=== PATIENT | male | born 1975 | race Caucasian/White ===

== ENCOUNTER 2017-01-20 12:14 | Emergency (ER) | payer BC ==
[2017-01-20 12:19] VITALS: BP 132/79; PULSE 70; TEMP 98.6; BMI 29.1
[2017-01-20] MEDS ORDERED: FLUORESCEIN NA 1 EA STRIP ONE (12:22)
[2017-01-20] MEDS ORDERED: TETRACAINE 0.5% OPHTH SOLN 2 ML BOTTLE ONE (12:22)
--- NOTE | 2017-01-20 12:31 | PDOC ---
History of Present Illness - General Chief Complaint: Eye Problem Stated Complaint: RT EYE IRRITATION, REDNESS Time Seen by Provider: 01/20/17 12:21 History Source: Patient Exam Limitations: No Limitations - History of Present Illness Initial Comments: 01/20/17 12:29 41 y/o male with right eye irritation after working in the garden. Right eye is red and teary. No discharge. Not sure if something went into eey. no blurred vision or light sensitivity. No headache. Timing/Duration: 1 hour Severity: mild Past History - Past Medical History Allergies/Adverse Reactions: Allergies Allergy/AdvReac Type Severity Reaction Status Date / Time No Known Allergies Allergy Verified 01/20/17 12:15 Home Medications: Ambulatory Orders Tobramycin/Dexamethasone [Tobradex Eye Drops] 1 drop OP QID #5 drops.susp - Psycho/Social/Smoking Cessation Hx Anxiety: No Suicidal Ideation: No Smoking Status: No Smoking History: Never smoked Number of Cigarettes Smoked Daily: 0 Hx Alcohol Use: (occasional) Review of Systems - Review of Systems Able to Perform ROS?: Yes Is the patient limited Chinese proficient: No Constitutional: No: Chills, Fever HEENTM: Yes: Tearing, Other (eye redness). No: Eye Pain, Blurred Vision Respiratory: No: Cough, Shortness of Breath Cardiac (ROS): No: Chest Pain Musculoskeletal: No: Joint Pain All Other Systems: Reviewed and Negative *Physical Exam - Vital Signs Last Vital Signs Temp Pulse Resp BP Pulse Ox 98.6 F 70 18 132/79 98 01/20/17 12:15 01/20/17 12:15 01/20/17 12:15 01/20/17 12:15 01/20/17 12:15 - Physical Exam General Appearance: Yes: Nourished, Appropriately Dressed. No: Apparent Distress HEENT: positive: EOMI, MARIAH, Normal ENT Inspection, Normal Voice. negative: Pale Conjunctivae, Photophobia, Scleral Icterus (R) (right eye injected, no foreign body seen under eyelids, no drainage noted) Respiratory/Chest: positive: Lungs Clear, Normal Breath Sounds Cardiovascular: positive: Regular Rhythm, Regular Rate, S1, S2 Vascular Pulses: Femoral (R): 4+, Femoral (L): 4+, Carotid (R): 4+, Carotid (L) : 4+, Dorsalis-Pedis (R): 4+, Doralis-Pedis (L): 4+ Lymphatic: negative: Adenopathy, Tenderness, Other Extremity: positive: Normal Capillary Refill, Normal Inspection, Normal Range of Motion Integumentary: positive: Normal Color, Dry, Warm Neurologic: positive: orthodontic band maker II-XII NML intact, Fully Oriented, Alert, Normal Mood/ Affect, Normal Response, Motor Strength / ED Treatment Course - ADDITIONAL ORDERS Additional order review: 01/20/17 12:35 Procedure: right eye irrigated with saline after 1 drop of Tetracaine placed in right eye Using Fluoroscene and cobalt light no corneal abrasion seen Eyelids everted no foreign body seen Eye irrigated, pt tolerated procedure well. *DC/Admit/Observation/Transfer Diagnosis at time of Disposition: Irritation of eye - Discharge Dispostion Disposition: HOME Condition at time of disposition: Stable Admit: No - Patient Instructions Printed Discharge Instructions: DI for Red Eye Additional Instructions: Tobradex eye drops 1 drop 4x/day for 1 week to right eye If worsen return to ER
== END 2017-01-20 12:45 | disposition home or self-care (01) ==
LOC: FER 12:14
DX: H57.8 Other specified disorders of eye and adnexa (principal)
CPT/HCPCS: 99282-25

== ENCOUNTER 2017-08-07 22:32 | Emergency (ER) | payer BC ==
[2017-08-07 22:39] VITALS: BP 135/86; PULSE 98; TEMP 98.4; BMI 31.1
--- NOTE | 2017-08-08 00:14 | PDOC ---
History of Present Illness - General Chief Complaint: Injury Stated Complaint: SPLINTER IN RIGHT HAND Time Seen by Provider: 08/07/17 22:40 - History of Present Illness Initial Comments: This otherwise healthy 42-year-old man presents with history of wooden splinter in his right palm. The patient states that approximately 8 hours prior to presentation, wooden splinter from the side of a building entered his right palm. Patient was able to remove the splinter with his fingers at that time. However, since then, he noted some discoloration on either side of the wound ( entrance wound and distal portion of where the splinter was.) He wondered if If this was retained foreign body in the skin and presents for evaluation. No other injury sustained. Patient has a history of abscess in the left thumb, September,, after he delayed evaluation/repair of a laceration of the thumb sustained at home. Most recent tetanus prophylaxis September, Past History - Past Medical History Allergies/Adverse Reactions: Allergies Allergy/AdvReac Type Severity Reaction Status Date / Time No Known Allergies Allergy Verified 08/07/17 22:34 Home Medications: Ambulatory Orders Amox-Tr/K Cl [Augmentin - 875Mg Tablet] 1 tab PO BID #10 tablet 08/08/17 Clindamycin HCl 300 mg PO TID #12 capsule 08/08/17 COPD: No Other medical history: DENIES - Immunization History Immunization Up to Date: Yes - Suicide/Smoking/Psychosocial Hx Smoking Status: No Smoking History: Never smoked Have you smoked in the past 12 months: No Number of Cigarettes Smoked Daily: 0 Information on smoking cessation initiated: No Hx Alcohol Use: No Drug/Substance Use Hx: No Substance Use Type: None Review of Systems - Review of Systems Able to Perform ROS?: Yes Comments:: 12 point review of systems is negative except for what is noted in the history of present illness *Physical Exam - Vital Signs Last Vital Signs Temp Pulse Resp BP Pulse Ox 98.4 F 98 H 16 135/86 98 08/07/17 22:36 08/07/17 22:36 08/07/17 22:36 08/07/17 22:36 08/07/17 22:36 - Physical Exam Comments: GENERAL: Adult male, alert and oriented 3, in no acute distress HEAD: Normal with no signs of trauma. EYES: PERRLA, EOMI, sclera anicteric, conjunctiva clear. ENT: Ears normal, nares patent, oropharynx clear without exudates. Dry mucous membranes. NECK: Normal range of motion, supple without lymphadenopathy, JVD, or masses. LUNGS: Breath sounds equal, clear to auscultation bilaterally. No wheezes, and no crackles. HEART:Regular rate and rhythm, normal S1 and S2 without murmur, rub or gallop. ABDOMEN:.normal bowel sounds No guarding,tenderness or rebound.No masses No distention. EXTREMITIES: Right hand-small (2 mm) nonbleeding wound of the hypothenar eminence; faint discoloration at entrance 1 mm faintly brownish discoloration approximately 2 cm medial to entrance wound No obviously palpable foreign body in the skin; ROM of hand present without pain or weakness No erythema/edema/purulence/fluctuance of the hand Remainder of the extremity exam is normal NEUROLOGICAL: Cranial nerves II through XII grossly intact. Normal speech. No focal neurological deficits. MUSCULOSKELETAL: Back non-tender to palpation, no CVA tenderness SKIN: Warm, Dry, normal turgor, no rashes or lesions noted. Progress Note - Progress Note Progress Note: Area of foreign body in the medial mid aspect of the right hand, palmar aspect prepped using Hibiclens/ethanol solution. 1.5 mL of 1% lidocaine infiltrated into the area for local anesthesia. #11 blade used to make 2 small (2 mm) incisions in the proximal[entrance] area of the wound and in the distal area. Both regions thoroughly irrigated with normal saline (approximately 30 mL in each). Base of the wounds explored using tip of fine hemostat. No foreign body could be seen. Discoloration no longer visible after normal saline irrigation. Wounds left open Bacitracin and dry sterile dressing applied. Because patient has a history of skin abscess after laceration in the past, the patient will be given Augmentin 875/125 , one dose now followed by a course of 875/Augmentin 875/125 twice a day for 5 days. Patient can take the original dressing off tomorrow but should continue bacitracin/protective dressing (such as Bandaid) for the next several days. 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 MRSA sensitivity included clindamycin; patient was treated with this antibiotic in September. The patient will be changed to clindamycin 300 mg 3 times a day for 5 days. Patient's contact number called. Patient's answered and situation explained to her. She will communicate this with the patient. Patient's pharmacy, [facility] [place] contacted: Voicemail message was left to cancel Augmentin and new prescription for clindamycin dictated. *DC/Admit/Observation/Transfer Diagnosis at time of Disposition: Foreign body, hand, superficial Qualifiers: Encounter type: initial encounter Laterality: right Qualified Code(s): S60.551A - Superficial foreign body of right hand, initial encounter - Discharge Dispostion Disposition: HOME Condition at time of disposition: Stable - Prescriptions Prescriptions: Amox-Tr/K Cl [Augmentin - 875Mg Tablet] 1 tab PO BID #10 tablet Clindamycin HCl 300 mg PO TID #12 capsule - Referrals - Patient Instructions Printed Discharge Instructions: DI for Removal of Foreign Body From Skin Additional Instructions: Keep original dressing in place overnight/hand elevated Tomorrow morning, can remove bandage and replace with Band-Aid/bacitracin Keep wound covered during day for 3 days/open at night Augmentin 875/125 twice a day for 5 days -take with food Return or see your doctor if area becomes red/swollen/painful - Post Discharge Activity
[2017-08-08] MEDS ORDERED: AMOX TR/POT CLAV 875MG/125MG TABLETS (FP) PO ONE (00:54)
[2017-08-08] MEDS ORDERED: AMOX TR/POT CLAV 875MG/125MG TABLETS (FP) ONE (00:54)
== END 2017-08-08 01:02 | disposition home or self-care (01) ==
LOC: FER 22:32
PROC: 0HCFXZZ Extirpation of Matter from Right Hand Skin, External Approach (ICD-10-PCS; principal; 2017-08-07)
DX: S60.551A Superficial foreign body of right hand, initial encounter (principal); X58.XXXA Exposure to other specified factors, initial encounter; Y93.89 Activity, other specified; Y92.9 Unspecified place or not applicable
CPT/HCPCS: 99281-25